=== PATIENT | female | born 1975 | race Hispanic/Latino ===

== ENCOUNTER 2019-07-25 14:25 | Observation (INO) | payer OTHER ==
[~2019-07-25] VITALS: Ht 160 cm; Wt 65.3 kg
[2019-07-25] MEDS ORDERED: SODIUM CHLORIDE 0.9% 1000ML 1,000 ML IV STA (14:44)
[2019-07-25] MEDS ORDERED: CLINDAMYCIN PHOS 900MG/ 50ML 50 ML IV ONE (15:00)
[2019-07-25 15:20] LABS: CLARITY,URINE SL CLOUDY (CLEAR); COLOR,URINE YELLOW (YELLOW); KETONES,URINE NEGATIVE (NEGATIVE); LEUKOCYTE ESTERASE ,URINE NEGATIVE (NEGATIVE); NITRITE,URINE NEGATIVE (NEGATIVE); PROTEIN,URINE DIPSTICK NEGATIVE (NEGATIVE)
[2019-07-25 15:21] LABS: BILIRUBIN,URINE NEGATIVE (NEGATIVE); URINE UROBILINOGEN 0.2 mg/dL (0.2 - 1)
[2019-07-25] MEDS ORDERED: ONDANSETRON HCL INJ 2MG/ML 2ML 2 MG/ML VIAL IV STA ×2 (15:24→15:34)
[2019-07-25] MEDS ORDERED: HYDROCODONE/APAP 7.5MG-325MG 1 EA TAB PO STA (15:24)
--- NOTE | 2019-07-25 15:25 | Diagnostic Imaging Report ---
Chest, portable AP view History: Bilateral mastectomy, pain swelling in left breast Comparison: No comparisons available for review IMPRESSION: The heart is within normal limits of size. There is no focal consolidation, sizable pleural effusion, or pneumothorax. Surgical clips project over the bilateral chest wall. Bilateral breast implants are in place. No acute osseous abdomen bodies. Signed by: Alon Ramírez MD on 07/25/2019 3:22 PM
[2019-07-25 15:26] LABS: PREGNANCY TEST, URINE NEGATIVE (NEGATIVE)
[2019-07-25] MEDS ORDERED: MORPHINE SULFATE INJ 4 MG/ML INJ 1ML IV STA (15:34)
[2019-07-25 15:37] LABS: BACTERIA,URINE MODERATE /HPF; EPITHELIAL CELLS,URINE FEW /LPF; RENAL EPITHELIAL CELLS,URINE MODERATE
--- NOTE | 2019-07-25 15:40 | NUR ---
Ultrasound currently being performed
[2019-07-25 15:58] LABS: INR 0.87; PROTHROMBIN TIME 12.3 seconds (11.9-14.5)
[2019-07-25 15:59] LABS: PARTIAL THROMBOPLASTIN TIME 30.9 seconds (23.8-35.5)
[2019-07-25 16:00] LABS: ALANINE AMINOTRANSFERASE 14 IU/L (0-55); ALBUMIN 3.9 g/dL (3.5-5.0); ALKALINE PHOSPHATASE 100 IU/L (40-150); ANION GAP 12.4 mmol/L (8-16); BLOOD UREA NITROGEN 10 mg/dL (7-26); BUN/CREATININE RATIO 14 (6-25); CALCIUM 9.7 mg/dL (8.4-10.2); CARBON DIOXIDE 28 mmol/L (22-29); CHLORIDE 107 mmol/L (98-107); CREATINE KINASE 46 IU/L (29-168); CREATININE, SERUM 0.69 mg/dL (0.57-1.11); EST GLOMERULAR FILTRATION RATE > 60 ML/MIN (60-); GLUCOSE 94 mg/dL (74-118); POTASSIUM 3.4 mmol/L (3.5-5.1); SODIUM 144 mmol/L (136-145)
[2019-07-25 16:08] LABS: BASOPHILS % 0.3 % (0.0-1.0); EOSINOPHILS # (AUTO) 0.1 (0.0-0.4); EOSINOPHILS % 0.8 % (0.0-6.0); HEMATOCRIT 35.1 % (34.2-44.1); HEMOGLOBIN 11.6 g/dL (12.0-16.0); LYMPHOCYTES # (AUTO) 1.9 (1.0-3.2); LYMPHOCYTES % 28.7 % (18.0-39.1); MEAN CORPUSCULAR HEMOGLOBIN 30.4 pg (28-32); MEAN CORPUSCULAR VOLUME 91.9 fL (81-99); MONOCYTES # (AUTO) 0.6 (0.2-0.8); MONOCYTES % 8.6 % (4.4-11.3); NEUTROPHILS % 61.3 % (38.7-80.0); PLATELET COUNT 219 x10e3/uL (140-360); RED BLOOD COUNT 3.82 x10e6/uL (3.6-5.1); RED CELL DISTRIBUTION WIDTH 13.1 % (11.7-14.4)
--- NOTE | 2019-07-25 16:14 | Diagnostic Imaging Report ---
Left breast ultrasound Clinical indications: Breast implant, cellulitis Comparison: None Findings: Left breast and chest wall ultrasound was performed. A left breast implant is in place. The 9-11 o'clock position in the patient's area of redness and pain there is approximately 2.4 x 1.3 cm fluid collection which contains echogenic debris. Fashion: Small fluid collection containing echogenic debris adjacent to the patient's left breast implant at approximately the 9 to 11:00 position. Signed by: Alon Ramírez MD on 07/25/2019 4:11 PM
[2019-07-25] MEDS ORDERED: SODIUM CHLORIDE 0.9% 1000ML 1,000 ML IV SCH (16:41)
[2019-07-25] MEDS ORDERED: ONDANSETRON HCL INJ 2MG/ML 2ML 2 MG/ML VIAL IV PRN (16:45)
[2019-07-25] MEDS ORDERED: HYDROCODONE/APAP 7.5MG-325MG 1 EA TAB PO PRN (16:45)
--- OUTSIDE RECORDS SUMMARY | 2019-07-25 16:59 | XMS REPORT ---
Author Author [facility] Address Unknown Phone Unavailable Care Team Providers Care Wireless Sales Manager Name Role Phone Venkat LANGSTON Unavailable Unavailable Problems This patient has no known problems. Allergies, Adverse Reactions, Alerts This patient has no known allergies or adverse reactions. Medications This patient has no known medications. Results Test Description Test Time Test Comments Text Results Atomic Results Result Comments US BREAST COMPLETE LEFT 2019-07-25 16:07:[address] [address] Patient Name: FELIPE PRASAD MR #: [id number] : 1975 Age/Sex: 44/F Req #: [id number] [facility] Physician: Ordered by: CLAUDIA LANGSTON MD Report #: [id number] Location: ER Room/Bed: Procedure: [id number] US/US BREAST COMPLETE LEFT Exam Date: 07/25/19 Exam Time: 1532 REPORT STATUS: Signed Left breast ultrasound Clinical indications: Monica ast implant, cellulitis Comparison: None Findings: Left breast and chest wall ultrasound was performed. A left breast implant is in place. The 9- 11 o'clock position in the patient's area of redness and pain there is approximately 2.4 x 1.3 cm fluid collection which contains echogenic debris. Fashion: Small fluid collection containing echogenic debris adjacent to the patient's left breast implant at approximately the 9 to 11:00 position. Signed by: Alon Wright MD on 07/25/2019 4:11 PM Dictated By: ALON WRIGHT MD 10 Transcribed By: OLU on 07/25/19 161 COPY TO: CLAUDIA LANGSTON MD CHEST SINGLE (PORTABLE) 2019-07-25 15:21:00 [place] [address] Patient Name: FELIPE PRASAD MR #: [id number] : 1975 Age/Sex: 44/F Req #: [id number] Adm Physician: Ordered by: CLAUDIA LANGSTON MD Report #: [id number] Location: ER Room/Bed: Procedure: [id number] DX/CHEST SINGLE (PORTABLE) Exam Date: 07/25/19 Exam Time: 1450 REPORT STATUS: Signed Chest, portable AP view History: Bilateral maste ctomy, pain swelling in left breast Comparison: No comparisons available for review IMPRESSION: The heart is within normal limits of size. There is no focal consolidation, sizable pleural effusion, or pneumothorax. Surgical clips project over the bilateral chest wall. Bilateral breast implants are in place. No acute osseous abdomen bodies. Signed by: Alon Wright MD on 07/25/2019 3:22 PM Dictated By: ALON WRIGHT MD 152 Transcribed By: OLU on 07/25/19 152 COPY TO: CLAUDIA LANGSTON MD
[2019-07-25] MEDS ORDERED: CEFEPIME 2 GM/NS 0.9% 100 ML 100 ML IV SCH (17:00)
--- NOTE | 2019-07-25 17:27 | NUR ---
Area of redness marked with skin marker and measured, 14cm in length and 12cm in width. Pt currently being consented for procedure.
[2019-07-25] MEDS ORDERED: VANCOMYCIN 1GM/NS 250 ML 250 ML IV SCH (18:00)
--- NOTE | 2019-07-25 18:08 | NUR ---
PT RECEIVED FROM ER. KAVYA4. EDUCATED PT ABOUT FALL PRECAUTIONS. PT VERBALIZED UNDERSTANDING. CALL LIGHT WITH IN EASY REACH. BED IS LOW AND LOCKED. SIDE RAILS X2. BED ALARM IS ON. PT DENIES NEEDS AT THIS TIME.
--- NOTE | 2019-07-25 18:18 | NUR ---
PAGED ER TO RECONFIRM THE MEDS. MORPHINE AND ZOFRAN STAT DOSE NOT GIVEN AND PENDING AFTER THE IR PROCEDURE. PT ALREADY WENT FOR IR PROCEDURE PER LAKEISHA LOZANO.
--- NOTE | 2019-07-25 18:22 | NUR ---
Nursing report given to Reji LOZANO on Med-surg 1.
--- NOTE | 2019-07-25 19:00 | NUR ---
BEDSIDE SHIFT REPORT GIVEN TO THE BRASS SORTER RN. PT DENIED FURTHER NEEDS.
--- NOTE | 2019-07-25 19:00 | NUR ---
RECEIVED PATIENT IN BEDSIDE SHIFT REPORT. PATIENT RESTING IN BED AT THIS TIME. NO PAIN REPORTED. MARKING TO L BREAST NOTED, REDNESS DOES NOT EXCEED MARKING. NO S&S OF DISTRESS NOTED. BED LOCKED IN LOWEST POSITION, SIDE RAILS UPX2, CALL LIGHT IN REACH.
[2019-07-25] MEDS ORDERED: ACETAMINOPHEN 325 MG TAB PO PRN (19:15)
[2019-07-25] MEDS ORDERED: HYDRALAZINE HCL 20 MG/ML VIAL IV PRN (19:15)
[2019-07-25 19:27] LABS: BODY FLUID APPEARANCE SL.CLOUDY; BODY FLUID COLOR YELLOW; BODY FLUID TYPE ASPIRATE
[2019-07-25 19:28] LABS: RBC,BODY FLUID 83 cells/uL; WBC,BODY FLUID 398 cells/uL
[2019-07-25 19:55] VITALS: BP 135/84
[2019-07-25] MEDS: CEFEPIME 2 GM/NS 0.9% 100 ML 100 ML IV SCH (20:34)
[2019-07-25 20:36] VITALS: BP 135/84
[2019-07-25 21:18] LABS: LYMPHOCYTES,BODY FLUID 93 %; MONO/MACROPHG,BODY FLUID 3 %; NEUTROPHILS,BODY FLUID 4 %
[2019-07-25 21:25] VITALS: BP 135/84
[2019-07-25] MEDS ORDERED: TAMOXIFEN CITRA10 MG PO (21:40)
[2019-07-25] MEDS ORDERED: GABAPENTIN300 MG PO (21:40)
[2019-07-25] MEDS ORDERED: MAGNESIUM400 MG PO (21:40)
[2019-07-25] MEDS ORDERED: MULTI-VITAMIN1 EACH (21:40)
[2019-07-25] MEDS ORDERED: CALCIUM600 MG PO (21:40)
[2019-07-25] MEDS ORDERED: MELATONIN 5 MG1 EAC1 PO (21:41)
--- NOTE | 2019-07-25 21:48 | NUR ---
PATIENT REQUESTING SOMETHING TO HELP HER SLEEP, SPOKE WITH PATROL MAN LATHA MONTAUGE, NEW ORDER RECEIVED.
[2019-07-25] MEDS ORDERED: MELATONIN 5 MG TABLET PO SCH (22:30)
[2019-07-25] MEDS: VANCOMYCIN 1GM/NS 250 ML 250 ML IV SCH (22:49)
[2019-07-26] VITALS (8 sets, daily range): BP systolic 114–132; BP diastolic 71–87
[2019-07-26 06:10] LABS: BASOPHILS % 0.3 % (0.0-1.0); EOSINOPHILS # (AUTO) 0.1 (0.0-0.4); EOSINOPHILS % 1.4 % (0.0-6.0); HEMATOCRIT 31.8 % (34.2-44.1); HEMOGLOBIN 10.5 g/dL (12.0-16.0); LYMPHOCYTES # (AUTO) 1.8 (1.0-3.2); LYMPHOCYTES % 24.8 % (18.0-39.1); MEAN CORPUSCULAR HEMOGLOBIN 30.4 pg (28-32); MEAN CORPUSCULAR VOLUME 92.2 fL (81-99); MONOCYTES # (AUTO) 0.8 (0.2-0.8); MONOCYTES % 11.3 % (4.4-11.3); NEUTROPHILS # (AUTO) 4.4 (2.1-6.9); NEUTROPHILS % 61.9 % (38.7-80.0); PLATELET COUNT 181 x10e3/uL (140-360); RED BLOOD COUNT 3.45 x10e6/uL (3.6-5.1); RED CELL DISTRIBUTION WIDTH 13.1 % (11.7-14.4)
--- NOTE | 2019-07-26 06:20 | NUR ---
NOTIFIED MD MUNOZ ANSWERING SERVICE OF CONSULT, INFORMATION FORWARDED.
[2019-07-26 06:52] LABS: ANION GAP 8.2 mmol/L (8-16); BLOOD UREA NITROGEN 9 mg/dL (7-26); CARBON DIOXIDE 26 mmol/L (22-29); CHLORIDE 111 mmol/L (98-107); CREATININE, SERUM 0.66 mg/dL (0.57-1.11); POTASSIUM 4.2 mmol/L (3.5-5.1); SODIUM 141 mmol/L (136-145)
[2019-07-26 06:53] LABS: BUN/CREATININE RATIO 14 (6-25); CALCIUM 9.1 mg/dL (8.4-10.2); EST GLOMERULAR FILTRATION RATE > 60 ML/MIN (60-); GLUCOSE 91 mg/dL (74-118)
--- NOTE | 2019-07-26 07:00 | NUR ---
RECEIVED PATIENT AWAKE RESTING IN BED NO S/S OF DISTRESS. BED LOW, WHEELS LOCKED, SIDE RAILS X2. CALL LIGHT IN REACH WILL CONTINUE TO MONITOR PATIENT.
[2019-07-26] MEDS: CEFEPIME 2 GM/NS 0.9% 100 ML 100 ML IV SCH ×2 (08:13→20:37)
[2019-07-26] MEDS: FAMOTIDINE 20 MG TAB PO SCH ×2 (08:13→16:20)
[2019-07-26] MEDS: VANCOMYCIN 1GM/NS 250 ML 250 ML IV SCH (09:53)
--- NOTE | 2019-07-26 10:25 | NUR ---
Pt. expressed no spiritual or emotional concerns at this time. Drying Unit Felting Machine Operator provided hospitality and information on how to reach banking paralegal, if needed. No need to follow at this time. ANNE LEIJA Drying Unit Felting Machine Operator Spiritual Care Department O: [phone]
[2019-07-26] MEDS ORDERED: ZOLPIDEM TARTRATE 5 MG TAB PO PRN (10:30)
[2019-07-26] MEDS ORDERED: DIPHENHYDRAMINE HCL INJ 50 MG/ML VIAL IV PRN (10:30)
--- NOTE | 2019-07-26 11:15 | NUR ---
PATIENT A/O X3, EVEN RESPIRATIONS ON RA. LUNG SOUNDS CLEAR. REDNESS PRESENT TO LEFT BREAST, REDNESS MARKED. PUNCTURE DRESSING IN PLACE WITH DRY DRAINAGE. PATIENT COMPLAINT OF ITCHING TO REDDENED AREA. RIGHT AC [address] PATIENT AMBULATES INDEPENDENTLY. CALL LIGHT IN REACH WILL CONTINUE TO MONITOR PATIENT.
--- NOTE | 2019-07-26 12:16 | Diagnostic Imaging Report ---
PROCEDURE: Fluid collection aspiration Procedural Personnel Attending physician(s): Alon Ramírez MD Fellow physician(s): None Resident physician(s): None Advanced practice provider(s): None Pre-procedure diagnosis: Breast collection Post-procedure diagnosis: Same Indication: Left breast fluid collection Additional clinical history: None Complications: No immediate complications. IMPRESSION: Percutaneous aspiration of left breast fluid collection, yielding 50 mL of cloudy fluid. No drainage catheter was left in place. PROCEDURE SUMMARY: - Aspiration of left breast fluid collection under ultrasound guidance - Additional procedure(s): None PROCEDURE DETAILS: Pre-procedure Consent: Informed consent for the procedure including risks, benefits and alternatives was obtained and time-out was performed prior to the procedure. Preparation: The site was prepared and draped using maximal sterile barrier technique including cutaneous antisepsis. Anesthesia/sedation Level of anesthesia/sedation: No sedation Anesthesia/sedation administered by: Independent trained observer under attending supervision with continuous monitoring of the patient?s level of consciousness and physiologic status Total intra-service sedation time (minutes): N/A Fluid collection aspiration The patient was positioned supine. Initial imaging was performed. Local anesthesia was administered. The fluid collection was accessed using an access needle. Position within the fluid collection was confirmed, and fluid aspiration was performed. All instruments were then removed. - Initial imaging findings: Small anechoic left breast subcutaneous fluid collection - Aspiration needle/catheter: 18 gauge needle - Post-aspiration imaging findings: Resolution of fluid collection Contrast Contrast agent: None Contrast volume (mL): 0 Radiation Dose None Additional Details Additional description of procedure: None Equipment details: None Specimens removed: Aspirated fluid was sent for analysis. Estimated blood loss (mL): Less than 10 Standardized report: [email or web address] Attestation Signer name: Jaseil Moscoso MD I attest that I was present for the entire procedure. I reviewed the stored images and agree with the report as written. Signed by: Jasiel Moscoso MD on 07/26/2019 12:13 PM
[2019-07-26] MEDS ORDERED: CYCLOBENZAPRINE HCL 10 MG TAB PO SCH (13:45)
--- NOTE | 2019-07-26 16:15 | NUR ---
CONSENT SIGNED BY PATIENT FOR PICC LINE.
[2019-07-26] MEDS: GABAPENTIN 300 MG CAP PO SCH (16:20)
--- NOTE | 2019-07-26 19:10 | NUR ---
BEDSIDE SHIFT REPORT RECEIVED FROM DAY RN. PT KAZAKH SPEAKING BUT IS ALERT AND ORIENTED X3. RESTING IN BED IN SEMIFOWLERS POSITION. RESPIRATIONS ARE EVEN AND UNLABORED. DENIES PAIN. 20 G IV PATENT WITH HEALTHY SITE IN RT FOREARM. CALL LIGHT WITHIN REACH. BED IN LOW POSITION.
--- NOTE | 2019-07-26 20:27 | Consultation ---
DATE OF CONSULTATION: REASON FOR CONSULTATION: Left breast abscess. HISTORY OF PRESENT ILLNESS: This patient is a very pleasant 44-year-old female. She had a double mastectomy in [email or web address] 4 years ago. The patient is followed by [facility] [[email or web address] She comes in with redness and swelling of the breast on the left. Denies any history of trauma. The patient had double mastectomy with lymph node dissection on the left. She is coming with the above. The patient was seen and examined. She is on vancomycin and cefepime, and aspiration of the breast was done with Gram stain is negative. The cultures are still pending. I am asked to see her. PAST MEDICAL HISTORY: Breast cancer. PAST SURGICAL HISTORY: Mastectomy, bilateral. ALLERGIES: NKA. SOCIAL HISTORY: There is no smoking, drug abuse, or alcohol abuse. FAMILY HISTORY: Otherwise noncontributory. REVIEW OF SYSTEMS: HEENT: Negative. PULMONARY: Negative. CARDIAC: Negative. : Negative. SKIN: There is no rash except on the breast. PHYSICAL EXAMINATION: GENERAL: She is currently alert, oriented, does not seem to be in acute distress. VITAL SIGNS: Stable, currently afebrile. HEENT: She is not icteric. NECK: Supple. CHEST: Clear. HEART: S1 and S2. No S3, S4, or murmur. ABDOMEN: Soft. Bowel sounds present. No tenderness. EXTREMITIES: No edema. BREASTS: There is erythema. There is edema noted on the left. IMPRESSION: Mastitis, abscess in the patient who had bilateral mastectomy, status post breast implant. The patient would like to follow up with her [facility] [[email or web address] physician. Agree with aspiration. We will get a PICC line. We will put on the right upper extremity. We will make final recommendation once sensitivity is available. We will send her with IV antibiotic and she follow up with her [facility] [[email or web address] physician. Answered all her questions. We will follow. MD SORAIDA Farris/ALLYN /[id number]
[2019-07-26] MEDS ORDERED: MELATONIN 5 MG TABLET PO SCH ×2 (21:00→23:10)
--- NOTE | 2019-07-26 23:53 | Diagnostic Imaging Report ---
EXAMINATION: CHEST XRAY LINE PLACEMENT INDICATION: PICC line. COMPARISON: Chest radiograph 07/25/2019. FINDINGS: TUBES and LINES: Interval placement of right arm PICC which terminates in the upper SVC. LUNGS: Lungs are well inflated. There is no evidence of pneumonia or pulmonary edema. PLEURA: No pleural effusion or pneumothorax. HEART AND MEDIASTINUM: The cardiomediastinal silhouette is unremarkable. BONES AND SOFT TISSUES: No acute osseous abnormality. Surgical clips project over the left breast. There are bilateral breast implants. UPPER ABDOMEN: No free air under the diaphragm. IMPRESSION: Interval placement of right arm PICC which terminates in a satisfactory position in the SVC. No evidence of pneumothorax. Signed by: Dr. Ganga Noble MD on 07/26/2019 11:49 PM
[2019-07-27] VITALS: BP 131/74
--- NOTE | 2019-07-27 | NUR ---
PICC PLACED AT 2130. PT TOLERATED PROCEDURE WELL. PICC IN RT UPPER ARM- DL. CXR DONE FOR PLACEMENT. DR DILLON READ XRAY- CATHETER IN MID SVC- OK TO USE PER DR DILLON PER NURSING PASSENGER REPRESENTATIVE. VANCO TROUGH WAS DONE PRIOR TO DOSE 07/25 1957 - 6.2. VANCO TO BE GIVEN ORDERED.
[2019-07-27 04:00] VITALS: BP 124/75
[2019-07-27 06:02] LABS: BASOPHILS % 0.4 % (0.0-1.0); EOSINOPHILS # (AUTO) 0.1 (0.0-0.4); EOSINOPHILS % 1.8 % (0.0-6.0); HEMATOCRIT 31.2 % (34.2-44.1); HEMOGLOBIN 10.3 g/dL (12.0-16.0); LYMPHOCYTES # (AUTO) 1.8 (1.0-3.2); LYMPHOCYTES % 36.4 % (18.0-39.1); MEAN CORPUSCULAR HEMOGLOBIN 30.1 pg (28-32); MEAN CORPUSCULAR VOLUME 91.2 fL (81-99); MONOCYTES # (AUTO) 0.5 (0.2-0.8); MONOCYTES % 10.3 % (4.4-11.3); NEUTROPHILS # (AUTO) 2.6 (2.1-6.9); NEUTROPHILS % 50.9 % (38.7-80.0); PLATELET COUNT 187 x10e3/uL (140-360); RED BLOOD COUNT 3.42 x10e6/uL (3.6-5.1)
[2019-07-27 06:19] LABS: ANION GAP 10.5 mmol/L (8-16); BLOOD UREA NITROGEN 12 mg/dL (7-26); BUN/CREATININE RATIO 18 (6-25); CALCIUM 9.2 mg/dL (8.4-10.2); CARBON DIOXIDE 26 mmol/L (22-29); CHLORIDE 108 mmol/L (98-107); CREATININE, SERUM 0.65 mg/dL (0.57-1.11); EST GLOMERULAR FILTRATION RATE > 60 ML/MIN (60-); GLUCOSE 80 mg/dL (74-118); POTASSIUM 3.5 mmol/L (3.5-5.1); SODIUM 141 mmol/L (136-145)
--- NOTE | 2019-07-27 07:00 | NUR ---
RECEIVED PATIENT RESTING IN BED NO S/S OF DISTRESS. BED LOW, WHEELS LOCKED, SIDE RAILS X2. CALL LIGHT IN REACH WILL CONTINUE TO MONITOR PATIENT.
[2019-07-27] MEDS: FAMOTIDINE 20 MG TAB PO SCH (07:47)
[2019-07-27] MEDS: CEFEPIME 2 GM/NS 0.9% 100 ML 100 ML IV SCH (07:48)
[2019-07-27] MEDS: GABAPENTIN 300 MG CAP PO SCH (07:48)
[2019-07-27 08:30] VITALS: BP 135/85
[2019-07-27] MEDS: VANCOMYCIN 1GM/NS 250 ML 250 ML IV SCH ×2 (08:47)
[2019-07-27 08:59] VITALS: BP 135/85
--- NOTE | 2019-07-27 09:44 | Progress Note ---
DATE: SUBJECTIVE: The patient seen and evaluated, and discussed with Dr. Hansen. REVIEW OF SYSTEMS: The patient states that she is doing better. Pain is improving, still complaining of redness on the medial side of her left breast area. OBJECTIVE: VITAL SIGNS: Temperature is 97.9, pulse is 75, respirations 18, and blood pressure 135/85. GENERAL: Alert and oriented, in no acute distress. CV: S1 and S2. CHEST: Equal expansion, clear to auscultation. No acute distress. ABDOMEN: Soft and nontender. No distention. HEENT: Moist. No pallor. No JVD. EXTREMITIES: Moves all. No edema. BREASTS: Left breast on the medial side with some erythema. The site that the needle was placed in for aspiration is dressed and no acute findings. MEDICATIONS: Medication list reviewed. As far as Infectious Disease point of view, the patient is on vancomycin IV and cefepime. LABORATORY STUDIES: White count of 5.06, hemoglobin 10.3, and platelets 187. Sodium 141, potassium 3.5, creatinine 0.6. Toxicology; vancomycin trough is 6.2. MICROBIOLOGY: Blood culture on 07/25/2019, negative. Urine culture on 07/25/2019, lactobacilli and diphtheroids between 10 to 50,000. Body fluid aspiration from left breast on 07/24, is negative for 2 days. RADIOLOGY STUDIES: No new radiology studies available. ASSESSMENT AND PLAN: 1. This is a pleasant 44-year-old female with history of mastectomy and reconstructive surgery about 4 years ago. 2. Mastitis. 3. Abscess, status post aspiration of fluid with culture negative so far. 4. Breast implant. 5. Followup with the cultures. Low vancomycin trough, currently on vancomycin IV and cefepime. Re-dose vancomycin. Follow up with the cultures. Discussed with Dr. Hansen. Further management of this patient based on daily findings on laboratory and physical examination. Please refer to chart for more information. Dictated by Alverto Rodriguez PA-C (Al) Marco Hansen MD /MODL /[id number]
[2019-07-27] MEDS ORDERED: LEVAQUIN500 MG PO (09:51)
--- NOTE | 2019-07-27 10:28 | NUR ---
REMOVED PATIENTS PICC LINE. CATHETER TIP INTACT AND PRESSURE DRESSING APPLIED.
--- NOTE | 2019-07-27 10:56 | NUR ---
PATIENT DISCHARGED FROM FACILITY. PATIENT GATHERED ALL PERSONAL BELONGINGS, DISCHARGE INSTRUCTIONS AND F/U INFORMATION. NO S/S OF DISTRESS WHEN LEAVING FACILITY.
[2019-07-27] MEDS ORDERED: VANCOMYCIN HCL 1.25 GM in SODIUM CHLORIDE 0.9% 250ML 250 ML IV SCH ×2 (18:00→21:00)
[2019-07-27] MEDS ORDERED: MELATONIN 5 MG TABLET PO SCH (21:00)
--- NOTE | 2019-07-28 08:17 | Discharge Summary ---
ADMISSION DIAGNOSES: Left breast cellulitis with abscess and past medical history of breast cancer. DISCHARGE DIAGNOSES: Left breast cellulitis with abscess and past medical history of breast cancer. HISTORY: Breast cancer. SURGICAL HISTORY: Bilateral mastectomy, bilateral breast implants, and hysterectomy. FAMILY HISTORY: The patient's cousin and grandmother have cancer. SOCIAL HISTORY: Noncontributory. HOSPITAL COURSE: A 44-year-old female admitted with complaints of left breast pain on Wednesday. By Wednesday, she noticed redness and swelling. She denies fever. She went to her oncologist's office and they told her to come to the ER. On admission, ultrasound of the left breast showed small fluid collection containing echogenic debris adjacent to the patient's left breast implant at approximately the 9 to 11 position. Due to the history of cancer and immunosuppression, ID was consulted. Blood cultures were negative, urine culture negative, and the aspirate from the left breast abscess was negative for 48 hours. ID said the patient can discharge home with Levaquin daily for 14 days. She will follow up with Infectious Disease at the end of the 14 days. She will follow up with primary care in 1 to 2 weeks. The patient understands discharge instructions and agrees to plan. Vital signs stable, the patient afebrile. Dictated by Zenia Orellana NP MD ROB Elizabeth/MODL /[id number]
== END 2019-07-27 10:55 | disposition home or self-care (01) ==
LOC: ER 14:25 → ERHOLD 16:41 → MED/SURG 18:02
PROVIDERS: ADMIT Internal Medicine; ATTEND Internal Medicine
DX: N60.02 Solitary cyst of left breast (principal); N61.0 Mastitis without abscess; Z85.3 Personal history of malignant neoplasm of breast; Z90.11 Acquired absence of right breast and nipple; Z90.710 Acquired absence of both cervix and uterus
CPT/HCPCS: 10160; 36415 ×3; 36569 ×2; 71045; 74470; 76641; 76942; 80048 ×2; 80053; 80202; 81001; 81025; 82550; 82553; 83036; 84443; 84484; 85025 ×3; 85610; 85730; 87040; 87070; 87086; 87205; 88112; 88305; 88342; 89051; 93005; 99284; G0378 ×3; J3370 ×3; J7030; J7050

== ENCOUNTER → 2019-07-28 | Outpatient (CLI) | payer OTHER ==
[~2019-07-28] MED LIST: CALCIUM600 MG PO; GABAPENTIN300 MG PO; LEVAQUIN500 MG PO; MAGNESIUM400 MG PO; MELATONIN 5 MG1 EAC1 PO; MULTI-VITAMIN1 EACH; TAMOXIFEN CITRA10 MG PO
--- NOTE | 2019-07-28 15:13 | Diagnostic Imaging Report ---
EXAMINATION: CHEST XRAY LINE PLACEMENT INDICATION: Line placement , cellulitis COMPARISON: Chest radiograph 07/26/2019 FINDINGS: LINES/TUBES:Right PICC line terminates in the superior vena cava. LUNGS:The lungs are well-inflated. No focal consolidation or pulmonary edema. PLEURA:No pleural effusion or pneumothorax. MEDIASTINUM:The cardiomediastinal silhouette appears normal in size and shape. BONES/SOFT TISSUES:No acute osseous injury. Surgical clips project over the breast soft tissues. ABDOMEN:No free air under the diaphragm. IMPRESSION: Right PICC line terminates in the superior vena cava. No focal pneumonia or pulmonary edema. Signed by: Jasiel Moscoso MD on 07/28/2019 3:10 PM
== END ==
LOC: DX 12:53
PROVIDERS: ATTEND Internal Medicine Infectious Disease
DX: N61.0 Mastitis without abscess (principal)
CPT/HCPCS: 36569

== ENCOUNTER → 2024-01-03 | Outpatient (REF) | payer OTHER | LOC: US 14:52 | PROVIDERS: ATTEND Internal Medicine Gastroenterology | DX: R74.8 Abnormal levels of other serum enzymes (principal) | CPT/HCPCS: 76700 ==